=== PATIENT | female | born 1995 | race Two or more races ===

== ENCOUNTER → 2020-01-31 | Emergency (ER) | payer MEDICAID, OTHER ==
[~2020-01-31] VITALS: Ht 165.1 cm; Wt 52.2 kg
[~2020-01-31] MED LIST: ALBUTEROL SULF 2.5 MG/0.5ML(0.5%) NEB SOLN NEB ONE; EPINEPHrine HCL 1 MG/1 ML AMP SC ONE; FAMOTIDINE (10MG/ML) 2ML VL IV ONE; IPRATROPIUM BROM 0.5 MG/2.5ML INH SOL NEB ONE; PROMETHAZINE HCL 25 MG/ML 1ML IV ONE; SODIUM CHLORIDE 0.9% 1,000 ML IV ONE; diphenhdrAMINE HCL 50 MG/1 ML VL IV ONE; methylPREDNISolone SOD SUCC 125 MG/2 ML VL IV ONE
[2020-02-01 00:06] VITALS: BP 97/50
== END | disposition home or self-care (01) ==
LOC: ER 20:00
DX: T78.3XXA Angioneurotic edema, initial encounter (principal); T78.40XA Allergy, unspecified, initial encounter; Z91.013 Allergy to seafood; X58.XXXA Exposure to other specified factors, initial encounter
CPT/HCPCS: 94640; 96372; 96374; 96375; 99284; J0171; J1200; J2550; J2930; J3490; J7030; J7644